=== PATIENT | male | born 1945 | race Caucasian/White ===

== ENCOUNTER → 2017-06-02 | Outpatient (CLI) | payer MEDICARE, OTHER | END | disposition home or self-care (01) | LOC: RAD 08:11 | PROVIDERS: ATTEND Specialist | DX: K21.9 Gastro-esophageal reflux disease without esophagitis (principal); K44.9 Diaphragmatic hernia without obstruction or gangrene; R05 Cough | CPT/HCPCS: 74241 ==

== ENCOUNTER → 2017-09-24 | Outpatient (CLI) | payer MEDICARE, OTHER ==
[2017-09-24 12:40] LABS: BASOPHILS # (AUTO) 0.03 x10^3/uL (0-0.1); BASOPHILS % (AUTO) 1 % (0-1); EOSINOPHILS # (AUTO) 0.16 x10^3/uL (0-0.4); EOSINOPHILS % (AUTO) 2 % (1-7); LYMPHOCYTES # (AUTO) 1.68 x10^3/uL (1-3.4); LYMPHOCYTES % (AUTO) 24 % (22-44); MD NO; MEAN CORPUSCULAR HEMOGLOBIN 32.4 pg (27.5-34.5); MEAN CORPUSCULAR HGB CONC 33.5 g/dL (33.2-36.2); MEAN CORPUSCULAR VOLUME 96.7 fL (81-97); MEAN PLATELET VOLUME 8.8 fL (7.4-10.4); MONOCYTES # (AUTO) 0.55 x10^3/uL (0.2-0.8); MONOCYTES % (AUTO) 8 % (2-9); NEUTROPHILS # (AUTO) 4.74 x10^3/uL (1.8-6.8); NEUTROPHILS % (AUTO) 66 % (42-75); PLATELET COUNT 225 x10^3/uL (130-400); RED BLOOD COUNT 4.57 x10^6/uL (4.38-5.82); RED CELL DISTRIBUTION WIDTH 13.8 % (9.4-14.8)
[2017-09-24 12:47] LABS: ALBUMIN 3.5 g/dL (3.4-5.0); ANION GAP 7 mmol/L (5-15); CALCIUM 8.9 mg/dL (8.5-10.1); CHLORIDE 108 mmol/L (98-107)
[2017-09-24 12:58] LABS: ALANINE AMINOTRANSFERASE 45 U/L (12-78); ALKALINE PHOSPHATASE 79 U/L (45-117); BILIRUBIN,TOTAL 0.5 mg/dL (0.2-1.0); CHOL/HDL RATIO 3.3; CHOLESTEROL, TOTAL 165 mg/dL (140-239); CREATININE 1.17 mg/dL (0.7-1.3); FREE T4 (FREE THYROXINE) 0.96 ng/dL (0.76-1.46); HDL CHOL % 30 % (26-37); HDL CHOLESTEROL (DIRECT) 50 mg/dL (40-60); LDL CHOLESTEROL,CALCULATED 91 mg/dL (54-169); LDL/HDL RATIO 1.8 (0.5-3.0); TOTAL PROTEIN 7.3 g/dL (6.4-8.2); TRIGLYCERIDES 122 mg/dL (50-200); VLDL CHOLESTEROL 24 mg/dL (0-25)
== END ==
LOC: LAB 11:00
PROVIDERS: ATTEND Internal Medicine
DX: Z13.220 Encounter for screening for lipoid disorders (principal); I10 Essential (primary) hypertension; N40.0 Benign prostatic hyperplasia without lower urinary tract symptoms
CPT/HCPCS: 36415; 80053; 80061; 84153; 84439; 84443; 85025

== ENCOUNTER → 2017-10-18 | Outpatient (CLI) | payer MEDICARE | END | disposition home or self-care (01) | LOC: CFH 08:03 | PROVIDERS: ATTEND Internal Medicine | DX: Z12.2 Encounter for screening for malignant neoplasm of respiratory organs (principal); F17.200 Nicotine dependence, unspecified, uncomplicated; J84.10 Pulmonary fibrosis, unspecified; I25.10 Atherosclerotic heart disease of native coronary artery without angina pectoris | CPT/HCPCS: 93978; G0297 ==

== ENCOUNTER → 2018-05-02 | Outpatient (CLI) | payer MEDICARE | END | disposition home or self-care (01) | LOC: LAB 09:23 | PROVIDERS: ATTEND Urology | DX: Z08 Encounter for follow-up examination after completed treatment for malignant neoplasm (principal); Z85.47 Personal history of malignant neoplasm of testis | CPT/HCPCS: 36415; 84153 ==

== ENCOUNTER → 2018-10-18 | Outpatient (CLI) | payer MEDICARE | END | disposition home or self-care (01) | LOC: LAB 12:10 | PROVIDERS: ATTEND Internal Medicine | DX: K51.90 Ulcerative colitis, unspecified, without complications (principal) | CPT/HCPCS: 36415; 86480 ==

== ENCOUNTER 2018-12-19 08:00 | Outpatient (CLI) | payer MEDICARE ==
[2018-12-19] MEDS ORDERED: SULF500T36 PO (11:56)
[2018-12-19] MEDS ORDERED: FOLI0.8T2 PO (11:56)
[2018-12-19] MEDS ORDERED: PANT40TA5 PO (11:56)
[2018-12-19] MEDS ORDERED: AMLO-150 PO (11:56)
[2018-12-19] MEDS ORDERED: CHOL10003 PO (11:56)
[2018-12-19] MEDS ORDERED: METO25TA35 PO (11:56)
== END 2018-12-19 23:59 | disposition home or self-care (01) ==
LOC: MERGE 08:00 → STAR 08:00
PROVIDERS: ATTEND Internal Medicine Geriatric Medicine
DX: K63.5 Polyp of colon (principal); Z88.0 Allergy status to penicillin
CPT/HCPCS: 93005

== ENCOUNTER 2018-12-19 11:07 | Outpatient (CLI) | payer MEDICARE ==
[2018-12-19] MEDS ORDERED: AMLO-150 PO (11:56)
[2018-12-19] MEDS ORDERED: METO25TA35 PO (11:56)
[2018-12-19] MEDS ORDERED: SULF500T36 PO (11:56)
[2018-12-19] MEDS ORDERED: FOLI0.8T2 PO (11:56)
[2018-12-19] MEDS ORDERED: CHOL10003 PO (11:56)
[2018-12-19] MEDS ORDERED: PANT40TA5 PO (11:56)
== END 2018-12-19 23:59 | disposition home or self-care (01) ==
LOC: STAR 11:07
PROVIDERS: ATTEND Internal Medicine Geriatric Medicine
DX: Z02.9 Encounter for administrative examinations, unspecified (principal)

== ENCOUNTER 2018-12-27 06:21 | Day surgery (SDC) | payer MEDICARE ==
[~2018-12-27] VITALS: Ht 176.5 cm; Wt 109.4 kg
[~2018-12-27 06:21] MED LIST: AMLO-150 PO; CHOL10003 PO; FOLI0.8T2 PO; METO25TA35 PO; PANT40TA5 PO; SULF500T36 PO
[2018-12-27 06:53] VITALS: BP 156/88
[2018-12-27] MEDS ORDERED: LACTATED RINGERS 1,000 ML IV SCH (06:57)
[2018-12-27] MEDS ORDERED: FENTANYL PF 100 MCG/2ML ONE (08:30)
[2018-12-27] MEDS ORDERED: METHYLENE BLUE 10 MG/ML 10ML ONE (08:30)
[2018-12-27] MEDS ORDERED: OXYcodone 5 MG/5 ML ORAL.SOL UDC PO PRN (09:00)
[2018-12-27] MEDS ORDERED: ONDANSETRON 2MG/ML, 2ML IV PRN (09:00)
[2018-12-27] MEDS ORDERED: hydrALAzine 20 MG/ML, 1ML IV PRN (09:00)
[2018-12-27] MEDS ORDERED: LABETALOL 5MG/ML, 20ML IV PRN (09:00)
[2018-12-27] MEDS ORDERED: FENTANYL PF 100 MCG/2ML IV PRN (09:00)
[2018-12-27] MEDS ORDERED: HYDROmorphone 2 MG/ML, 1ML IVPush PRN (09:00)
[2018-12-27] MEDS ORDERED: ONDANSETRON 2MG/ML, 2ML ONE (09:31)
[2018-12-27] MEDS ORDERED: PROPOFOL 10 MG/ML, 20ML ONE (09:31)
[2018-12-27] MEDS ORDERED: DEXAMETHASONE 4 MG/ML, 1ML ONE (09:31)
[2018-12-27] MEDS ORDERED: EPINEPHRINE SYRINGE 0.1 MG/ML, 10ML ONE (09:46)
== END 2018-12-27 11:10 | disposition home or self-care (01) ==
LOC: OUT 06:21
PROVIDERS: ATTEND Internal Medicine Geriatric Medicine
DX: D12.0 Benign neoplasm of cecum (principal); K62.1 Rectal polyp; K63.5 Polyp of colon; I10 Essential (primary) hypertension; K21.9 Gastro-esophageal reflux disease without esophagitis; Z88.0 Allergy status to penicillin
CPT/HCPCS: 45380; 45381; 45385; 88305; J1100; J2405; J2704; J3010; J7120; Q9968

== ENCOUNTER 2020-03-05 14:16 | Outpatient (CLI) | payer MEDICARE | END 2020-03-05 23:59 | disposition home or self-care (01) | LOC: CFH 14:16 | PROVIDERS: ATTEND Nurse Practitioner | DX: Z12.2 Encounter for screening for malignant neoplasm of respiratory organs (principal); F17.210 Nicotine dependence, cigarettes, uncomplicated; I77.819 Aortic ectasia, unspecified site; I70.0 Atherosclerosis of aorta; I51.7 Cardiomegaly; J98.4 Other disorders of lung | CPT/HCPCS: G0297 ==